=== PATIENT | female | born 2000 | race Caucasian/White ===

== ENCOUNTER 2024-07-17 12:17 | Emergency (ER) | payer OTHER, SELFPAY ==
[2024-07-17 12:24] VITALS: BP 154/92; PULSE 73; TEMP 36.7; O2SAT 100; BMI 28.3
--- NOTE | 2024-07-17 12:29 | XR_ITS ---
The [address] [address] Patient Name: GAURI LAZO MRN: [id number] date: 2000 Sex: F Assigned Patient Location: ER Current Patient Location: Accession/Order Number: [id number] Exam Date: 07/17/2024 12:56 Report Date: 07/17/2024 15:28 At the request of: CARMITA MONTENEGRO Procedure: XR hand RT min 3V EXAM: XR hand RT min 3V HISTORY: pain crush COMPARISON: None. TECHNIQUE: 3 views of the right hand were obtained. FINDINGS: There is no evidence of an acute fracture or dislocation. The joint spaces are intact. No significant focal osseous abnormality is identified. The soft tissues appear unremarkable. XR/XR hand RT min 3V IMPRESSION: No acute fracture or dislocation. The joint spaces are intact. Electronically authenticated by: KARINA CARUSO Date: 07/17/2024 15:28
--- NOTE | 2024-07-17 14:15 | ED.UPPEXIN1 ---
HPI HPI - Extremity Injury (Upper) General Chief Complaint: Extremity Injury, Upper Stated Complaint: UPPER EXTREMITY INJURY Time Seen by Provider: 07/17/24 12:28 Source: patient Mode of arrival: walk-in Limitations: no limitations History of Present Illness HPI narrative: Patient coming to us 1 day after she had a the file cabinet closed on her right middle finger she is complaining of some hematoma under the nail she is denying any other complaints Related Data Previous Rx's ?Medication ?Instructions ?Recorded ibuprofen 600 mg tablet 600 mg PO TID #9 tabs 07/17/24 Allergies Allergy/AdvReac Type Severity Reaction Status Date / Time No Known Drug Allergies Allergy Verified 07/17/24 12:24 Opioid HPI Opioid Management Most Recent Pain and Opioid Data: Last Pain Scale 7 07/17/24 12:28 07/17/24 Review of Systems ROS Status of ROS 10 or more systems reviewed and unremarkable except as noted in history and below Exam Narrative Exam Narrative: Nurses notes and vital signs reviewed and patient is not hypoxic. Right hand exam: The patient have a small hematoma covering almost 1/4 of the nail of the right middle finger the patient have full range of movement preserved. No other concerns General: Well-appearing and in no apparent distress. Skin: Warm, dry, no pallor noted. No rash. Head: Normocephalic, atraumatic. Neck: Supple, non-tender. Eye: Pupils are equal, round and EOMI. No scleral icterus. Ears, Nose, Mouth, and Throat: TM are clear, no nasal mucosal hypertrophy. Oral mucosa is moist, no posterior oropharynx erythema, uvula is mid-line Cardiovascular: Regular Rate and Rhythm without murmur, gallop or rub. Respiratory: No accessory muscle use or respiratory distress. Lungs are clear to auscultation, no wheezing, rales or rhonchi Chest Wall: no tenderness Back: No midline thoracic or lumbar vertebral tenderness. No CVA tenderness Musculoskeletal: normal ROM, no calf or popliteal tenderness, no lower extremity edema/swelling GI: Abdomen is soft, non-distended. Normal bowel sounds. No masses appreciated. No tenderness to palpation. No rebound, guarding, or rigidity noted. Neurological: A&O x4. No cranial nerve dysfunction observed. No truncal ataxia. Moves all extremities. Sensation intact. Psychiatric: Cooperative and interactive. Normal mood and affect. Constitutional Vital Signs, click to edit/add: Last Vital Signs Temp 98.1 F 07/17/24 12:24 Pulse 73 07/17/24 14:36 Resp 18 07/17/24 14:36 BP 154/92 H 07/17/24 12:24 Pulse Ox 100 07/17/24 14:36 O2 Del Method Room Air 07/17/24 14:36 Course Vital Signs Vital signs: Vital Signs Temperature 98.1 F 07/17/24 12:24 Pulse Rate 73 07/17/24 12:24 Respiratory Rate 18 07/17/24 12:24 Blood Pressure 154/92 H 07/17/24 12:24 Pulse Oximetry 100 07/17/24 12:24 Oxygen Delivery Method Room Air 07/17/24 12:24 Temperature 98.1 F 07/17/24 12:24 Pulse Rate 73 07/17/24 14:36 Respiratory Rate 18 07/17/24 14:36 Blood Pressure 154/92 H 07/17/24 12:24 Pulse Oximetry 100 07/17/24 14:36 Oxygen Delivery Method Room Air 07/17/24 14:36 MDM - Extremity Injury (Upper) MDM Narrative Medical decision making narrative: The patient presented to us with contusion to the tip of the right middle finger right now there is a small hematoma that is not significant enough to be drained at the moment Patient had an x-ray of the right hand showing no acute pathology In addition to that the patient had a finger splint provided and monitoring her symptoms in case of increasing the size of the hematoma she is to come to the ER The patient otherwise will continue ibuprofen anti-inflammatory for pain control The patient is to follow up with primary care physician in next 2-3 days or to return to the emergency department should any of the signs or symptoms worsen or new symptoms develop. The patient agrees with the following Diagnosis and Treatment plan and the patient will be discharged home. Discharge Plan Discharge Chief Complaint: Extremity Injury, Upper Clinical Impression: Contusion of finger Patient Disposition: Home, Self-Care Time of Disposition Decision: 14:02 Condition: Good Prescriptions / Home Meds: New ibuprofen 600 mg tablet 600 mg PO TID Qty: 9 0RF Print Language: [place] Instructions: Subungual Hematoma (ED), Contusion in Adults (ED) Referrals: Physician,Non-Staff, MD [Primary Care Provider] - 1 week Discharge Date/Time: 07/17/24 14:37
[2024-07-17 14:36] VITALS: PULSE 73; O2SAT 100
== END 2024-07-17 14:37 | disposition home or self-care (01) ==
PROVIDERS: Emergency Provider Emergency Medicine
DX: S60.131A Contusion of right middle finger with damage to nail, initial encounter (principal); W23.0XXA Caught, crushed, jammed, or pinched between moving objects, initial encounter
CPT/HCPCS: 29130; 73130; 99283